=== PATIENT | male | born 1970 | race Caucasian/White ===

== ENCOUNTER 2021-01-19 13:41 | Emergency (ER) | payer OTHER ==
[~2021-01-19] VITALS: Ht 172.7 cm; Wt 127.0 kg
[2021-01-19 13:49] VITALS: BP 155/105
[2021-01-19] MEDS ORDERED: ASPI-1822 PO (14:35)
[2021-01-19] MEDS ORDERED: AMLO5TAB PO (14:35)
[2021-01-19] MEDS ORDERED: IBUP-2213 PO (14:35)
--- NOTE | 2021-01-19 14:46 | NUR ---
no nursing interventions provided. Pt seen and discharged by Dr. Lancaster.
--- NOTE | 2021-01-19 14:47 | NUR ---
Patient discharged with v/s stable. Written and verbal after care instructions for hypertension given and explained. Patient alert, oriented and verbalized understanding of instructions. Ambulatory with steady gait. All questions addressed prior to discharge. ID band removed. Patient advised to follow up with PMD. Rx of amlodipine, ibuprofen, aspirin given. Patient educated on indication of medication including possible reaction and side effects. Opportunity to ask questions provided and answered.
== END 2021-01-19 14:47 | disposition home or self-care (01) ==
LOC: MED 13:41
DX: I10 Essential (primary) hypertension (principal); R07.9 Chest pain, unspecified
CPT/HCPCS: 99283